=== PATIENT | male | born 1935 | race Caucasian/White ===

== ENCOUNTER 2017-11-17 17:42 | Inpatient (IN) | payer OTHER ==
[~2017-11-17] VITALS: Ht 170.2 cm; Wt 84.5 kg
[2017-11-17 18:19] VITALS: Ht 170.2 cm; Wt 84.5 kg
[2017-11-17 19:20] LABS: UA SPECIFIC GRAVITY 1.015 (1.005-1.035); microscopic required? YES; urine erythrocyte 1+ (NEGATIVE)
[2017-11-17 19:22] LABS: BASOPHIL % 0.3 % (0-2); PLATELET COUNT 290 x10^3mcL (130-400); RED CELL DISTRIBUTION WIDTH 13.9 % (11.5-14.5)
[2017-11-17 19:25] LABS: CARBON DIOXIDE 31.6 mmol/L (21-32); CHLORIDE SERUM 97 mmol/L (98-107); CREATININE SERUM 1.7 mg/dL (0.7-1.3); GLUCOSE SERUM 116 mg/dL (74-106); SODIUM SERUM 137 mmol/L (136-145)
[2017-11-17 19:26] LABS: POTASSIUM SERUM 2.8 mmol/L (3.5-5.1)
[2017-11-17 20:17] LABS: ALBUMIN 3.5 g/dL (3.4-5.0); BILIRUBIN TOTAL 0.4 mg/dL (0.20-1.00)
[2017-11-17 20:18] LABS: ALT/SGPT 40 U/L (16-63); AST/SGOT 22 U/L (15-37)
[2017-11-17] MEDS ORDERED: EFFEXOR-XR75 MG PO (20:18)
[2017-11-17] MEDS ORDERED: CLARITIN10 MG PO (20:19)
[2017-11-17] MEDS ORDERED: MAPAP500 M2 PO (20:19)
[2017-11-17] MEDS ORDERED: ALPRAZOLAM0.25 MG PO (20:20)
[2017-11-17] MEDS ORDERED: ENALAPRIL MALEA10 MG PO (20:20)
[2017-11-17 20:21] LABS: ALKALINE PHOSPHATASE 72 U/L (46-116)
[2017-11-17] MEDS ORDERED: CHLORTHALIDONE25 MG PO (20:22)
[2017-11-17 20:26] LABS: BILIRUBIN DIRECT 0.11 mg/dL (0.0-0.2)
[2017-11-17 21:38] VITALS: BP 113/72
[2017-11-18 00:36] VITALS: BP 104/68
[2017-11-18 06:36] LABS: BASOPHIL % 0.4 % (0-2); PLATELET COUNT 256 x10^3mcL (130-400); RED CELL DISTRIBUTION WIDTH 13.9 % (11.5-14.5)
[2017-11-18 06:42] LABS: ALKALINE PHOSPHATASE 54 U/L (46-116); ALT/SGPT 30 U/L (16-63); AST/SGOT 20 U/L (15-37); BILIRUBIN TOTAL 0.6 mg/dL (0.20-1.00); CHLORIDE SERUM 103 mmol/L (98-107); CREATININE SERUM 1.3 mg/dL (0.7-1.3); GLUCOSE SERUM 101 mg/dL (74-106); MAGNESIUM 1.9 mg/dL (1.8-2.4); POTASSIUM SERUM 3.5 mmol/L (3.5-5.1); SODIUM SERUM 140 mmol/L (136-145)
[2017-11-18 06:44] LABS: TOTAL PROTEIN, SERUM 6.1 g/dL (6.4-8.2)
[2017-11-18 09:51] VITALS: BP 115/68
== END 2017-11-18 14:05 | disposition home or self-care (01) | DRG 463 ==
LOC: ED 17:42 → DU 20:37
PROVIDERS: Emergency Medicine; Internal Medicine Pulmonary Disease
DX: N39.0 Urinary tract infection, site not specified (principal); I10 Essential (primary) hypertension; F32.9 Major depressive disorder, single episode, unspecified; E87.6 Hypokalemia
CPT/HCPCS: 83880; J1956; J3475; J3480; J7030

== ENCOUNTER 2018-05-11 17:27 | Emergency (ER) | payer OTHER ==
[~2018-05-11] VITALS: Ht 175.3 cm; Wt 83.9 kg
[~2018-05-11 17:27] MED LIST: ALPRAZOLAM0.25 MG PO; CHLORTHALIDONE25 MG PO; CLARITIN10 MG PO; EFFEXOR-XR75 MG PO; ENALAPRIL MALEA10 MG PO; MAPAP500 M2 PO
[2018-05-11 17:45] VITALS: BP 104/58; Ht 175.3 cm; Wt 83.9 kg
== END 2018-05-11 18:40 | disposition home or self-care (01) ==
LOC: ED 17:27
DX: Z76.0 Encounter for issue of repeat prescription (principal); F32.9 Major depressive disorder, single episode, unspecified; I10 Essential (primary) hypertension; M19.90 Unspecified osteoarthritis, unspecified site; Z90.79 Acquired absence of other genital organ(s); Z98.890 Other specified postprocedural states

== ENCOUNTER 2018-06-26 10:15 | Emergency (ER) | payer OTHER ==
[~2018-06-26] VITALS: Ht 177.8 cm; Wt 86.2 kg
[2018-06-26 10:20] VITALS: Ht 177.8 cm; Wt 86.2 kg
[2018-06-26 11:01] LABS: BASOPHIL % 0.3 % (0-2); PLATELET COUNT 260 x10^3mcL (130-400)
[2018-06-26 11:16] LABS: ALBUMIN 3.9 g/dL (3.4-5.0); ALKALINE PHOSPHATASE 82 U/L (46-116); ALT/SGPT 29 U/L (16-63); AST/SGOT 21 U/L (15-37); BILIRUBIN TOTAL 0.8 mg/dL (0.20-1.00); CALCIUM 8.9 mg/dL (8.5-10.1); CARBON DIOXIDE 29.9 mmol/L (21-32); CHLORIDE SERUM 97 mmol/L (98-107); CREATININE SERUM 1.7 mg/dL (0.7-1.3); GLUCOSE SERUM 212 mg/dL (74-106); SODIUM SERUM 136 mmol/L (136-145); TOTAL PROTEIN, SERUM 7.8 g/dL (6.4-8.2); URIC ACID 7.2 mg/dL (3.5-7.2)
[2018-06-26 11:22] LABS: POTASSIUM SERUM 2.9 mmol/L (3.5-5.1)
[2018-06-26 13:40] VITALS: BP 130/62
== END 2018-06-26 13:40 | disposition home or self-care (01) ==
LOC: ED 10:15
PROVIDERS: Emergency Medicine
DX: M10.071 Idiopathic gout, right ankle and foot (principal); R73.9 Hyperglycemia, unspecified; I10 Essential (primary) hypertension; F32.9 Major depressive disorder, single episode, unspecified; M19.90 Unspecified osteoarthritis, unspecified site; E87.6 Hypokalemia; Z90.79 Acquired absence of other genital organ(s)
CPT/HCPCS: 36415